=== PATIENT | female | born 1945 | race Two or more races ===

== ENCOUNTER → 2020-12-05 | Outpatient (CLI) | payer MEDICARE ==
[~2020-12-05] MED LIST: CHOL200024 PO; CHONDROITIN PO; GLUC15006 PO; HYDR25TA6 PO; LISI-170 PO; NAPROSYN PO; OMEGA-3 PO; OXYC1TAB14 PO; OXYC1TAB7 PO; PILO5TAB PO; REGADENOSON 0.4 MG/5 ML SYRINGE ONE; RIVA10TA2 PO; TRAZ50TA66 PO; ZOLP10TA5 PO
== END | disposition home or self-care (01) ==
LOC: CVU 10:41
PROVIDERS: ATTEND Internal Medicine Cardiovascular Disease
DX: I08.0 Rheumatic disorders of both mitral and aortic valves (principal); I10 Essential (primary) hypertension; R06.00 Dyspnea, unspecified; R06.02 Shortness of breath
CPT/HCPCS: 78452; 93017; 93306; A9502; J2785